=== PATIENT | female | born 1945 | race Caucasian/White ===

== ENCOUNTER 2017-03-15 11:57 | Inpatient (IN) | payer OTHER ==
[~2017-03-15] VITALS: Ht 162.6 cm; Wt 70.1 kg
[2017-03-15] MEDS ORDERED: SODIUM CHLORIDE 0.9% 1000ML 1,000 ML IV STA ×3 (12:14→13:20)
[2017-03-15] MEDS ORDERED: ONDANSETRON 8 MG/54 ML D5W IV STA (12:18)
[2017-03-15 13:01] LABS: BASO % 0.1 %; BASO ABS # 0.01 K/uL (0-0.2); COMPLETE YES; EOS % 0.3 %; HEMATOCRIT 36.6 % (37-47); IG% 0.1 %; LYMPH % 2.5 %; LYMPH ABS # 0.18 K/uL (1.2-3.4); MEAN CELL VOLUME 78.7 fL (80-100); MEAN CORPUSCULAR HEMOGLOBIN 24.9 pg (25-34); MEAN CORPUSCULAR HGB CONC 31.7 g/dl (32-36); MEAN PLATELET VOLUME 11.4 fL (7.4-10.4); MONO % 1.5 %; NEUT % 95.5 %; PLATELET COUNT 169 K/uL (130-400); RED BLOOD COUNT 4.65 M/uL (4.2-5.4); WHITE BLOOD COUNT 7.22 K/uL (4.8-10.8)
--- NOTE | 2017-03-15 13:11 | DIAGNOSTIC IMAGING REPORT ---
CHEST ONE VIEW PORTABLE CLINICAL HISTORY: Weakness. Vomiting. COMPARISON STUDY: No previous studies for comparison. FINDINGS: Lung volumes are normal. There is no pneumothorax or pleural effusion. There is no consolidation to suggest pneumonia. Pulmonary vascularity is normal. Cardiomediastinal silhouette is unremarkable. IMPRESSION: No acute cardiopulmonary findings. Electronically signed by: Alejandro Khanna M.D. 03/15/2017 1:10 PM Dictated Date/Time: 03/15/2017 1:09 PM
[2017-03-15 13:12] LABS: PARTIAL THROMBOPLASTIN RATIO 0.8; PROTHROMBIN TIME (PATIENT) 10.5 SECONDS (9.0-12.0)
[2017-03-15] MEDS ORDERED: DAPTOmycin IV 500 MG in SODIUM CHLORIDE 0.9% 50ML 50 ML IV STA (13:18)
[2017-03-15] MEDS ORDERED: ACETAMINOPHEN 500 MG TAB PO STA (13:18)
[2017-03-15] MEDS ORDERED: PIPERACILLIN/TAZOBACTAM 4.5 GM/100ML D5W IV STA (13:18)
[2017-03-15 13:19] LABS: BLOOD UREA NITROGEN 16 mg/dl (7-18); CREATININE 0.87 mg/dl (0.60-1.20); GLUCOSE 117 mg/dl (70-99)
[2017-03-15 13:20] LABS: ALT/SGPT 20 U/L (12-78); AST/SGOT 19 U/L (15-37); CALCIUM 9.4 mg/dl (8.5-10.1); CARBON DIOXIDE 28 mmol/L (21-32); CHLORIDE 105 mmol/L (98-107); MAGNESIUM 1.4 mg/dl (1.8-2.4); POTASSIUM 3.8 mmol/L (3.5-5.1); SODIUM 140 mmol/L (136-145)
[2017-03-15 13:28] LABS: ALKALINE PHOSPHATASE 89 U/L (45-117)
[2017-03-15 13:50] LABS: URINE APPEARANCE CLEAR (CLEAR); URINE BILIRUBIN NEG (NEG); URINE COLOR YELLOW; URINE EPITHELIAL CELL AUTO 20-30 /lpf (0-5); URINE NITRITE NEG (NEG); URINE PH 5.5 (4.5-7.5); URINE SPECIFIC GRAVITY 1.013 (1.000-1.030); UROBILINOGEN NEG (NEG)
[2017-03-15 13:58] LABS: MANUAL MICROSCOPIC REQUIRED? NO; REVIEW REQ? NO
[2017-03-15] MEDS ORDERED: LEVO75TA PO (14:05)
[2017-03-15] MEDS ORDERED: TOLT4CAP PO (14:05)
[2017-03-15] MEDS ORDERED: METF-841 PO (14:05)
[2017-03-15] MEDS ORDERED: CEFTRIAXONE SOD INJ 2,000 MG in DEXTROSE 5% 50ML 50 ML IV STA (14:21)
[2017-03-15] MEDS ORDERED: OPTIRAY 320 IV PRN (15:00)
--- NOTE | 2017-03-15 16:58 | DIAGNOSTIC IMAGING REPORT ---
CT ANGIOGRAPHY OF THE CHEST, PULMONARY EMBOLUS PROTOCOL CLINICAL HISTORY: Shortness of breath and tachycardia. COMPARISON STUDY: Chest radiograph performed earlier today. TECHNIQUE: Following IV administration of 92 mL of Optiray-320, helical axial images of the chest were obtained utilizing the pulmonary embolus protocol. Maximal intensity projections and sagittal and coronal reformats were viewed on an independent 3D workstation. IV contrast was administered without complication. A dose lowering technique was utilized adhering to the principles of ALARA. CT DOSE: 203.29 mGy.cm FINDINGS: No central or lobar pulmonary emboli are identified. The segmental and subsegmental pulmonary arteries are suboptimally assessed due to respiratory motion. The heart is mildly enlarged. There is moderate coronary artery calcification. There is no evidence of thoracic aortic dissection. The thyroid gland is mildly enlarged and heterogeneous. No enlarged thoracic lymph nodes are present. The lungs are suboptimally assessed due to respiratory motion. A few tiny pulmonary nodules are likely benign. No consolidation is identified to suggest pneumonia. There is no pneumothorax or pleural effusion. A splenule is noted. IMPRESSION: 1. No pulmonary emboli identified although segmental and subsegmental pulmonary arteries suboptimally assessed due to respiratory motion. 2. No acute intrathoracic findings. 3. Mild cardiomegaly. Electronically signed by: Alejandro Khanna M.D. 03/15/2017 4:56 PM Dictated Date/Time: 03/15/2017 4:49 PM
[2017-03-15] MEDS ORDERED: ACETAMINOPHEN 325 MG TAB PO PRN (17:45)
[2017-03-15] MEDS ORDERED: ALUMINUM/MAGNESIUM/SIMETH (MAALOX MAX) 30 ML UDC PO PRN (17:45)
[2017-03-15] MEDS ORDERED: POLYETHYLENE (MIRALAX) 17 GM PACK PO PRN (17:45)
[2017-03-15] MEDS ORDERED: GLUCAGON FOR INJ 1 MG VIAL SQ PRN (17:45)
[2017-03-15] MEDS ORDERED: GLUCOSE 40% GEL 15 GM TUBE PO PRN (17:45)
[2017-03-15] MEDS ORDERED: DC ALL PREVIOUSLY ORDERED DIABETES MEDS ONE (17:45)
[2017-03-15] MEDS ORDERED: DEXTROSE 50% 50 ML SYR IV PRN (17:45)
[2017-03-15] MEDS ORDERED: MAGNESIUM HYDROXIDE SUSP 30 ML UDC PO PRN (17:45)
[2017-03-15] MEDS ORDERED: GLUCOSE 10 TABS/TUBE PO PRN (17:45)
--- NOTE | 2017-03-15 18:22 | DIAGNOSTIC IMAGING REPORT ---
BILATERAL LOWER EXTREMITY VENOUS DOPPLER CLINICAL HISTORY: R/O DVT, recent travel with high d dimer COMPARISON STUDY: No previous studies for comparison. TECHNIQUE: Sonography of the deep venous system of the bilateral lower extremities was performed. Compression and augmentation were evaluated. FINDINGS: The bilateral common femoral, superficial femoral and popliteal veins were compressible. Augmentation was normal. Flow was shown within the deep calf vessels. IMPRESSION: No evidence of deep venous thrombus within the bilateral lower extremities. Electronically signed by: Alejandro Khanna M.D. 03/15/2017 6:21 PM Dictated Date/Time: 03/15/2017 6:20 PM
--- NOTE | 2017-03-15 18:23 | DIAGNOSTIC IMAGING REPORT ---
RENAL ULTRASOUND CLINICAL HISTORY: UTI with sepsis, R/O hydronephrosis/stone or perinephric abscess COMPARISON STUDY: None. TECHNIQUE: Sonography of the kidneys and the urinary bladder was performed. FINDINGS: The right kidney measures 10.7 x 4.5 x 4.6 cm and the left measures 9.5 x 4 x 4.4 cm. There is no hydronephrosis. Exam is mildly compromised by suboptimal penetration. No calculi or masses are identified. The left ureteral jet was not visualized. There is minimal renal cortical thinning. IMPRESSION: 1. No hydronephrosis. 2. Mild renal cortical thinning. Electronically signed by: Alejandro Khanna M.D. 03/15/2017 6:22 PM Dictated Date/Time: 03/15/2017 6:21 PM
--- NOTE | 2017-03-15 18:40 | EMERGENCY ROOM VISIT NOTE ---
History Report prepared by Ross: Yobany Hart Under the Supervision of: Dr. George Gu M.D. First contact with patient: 12:14 Chief Complaint: ILLNESS Stated Complaint: VOMITING,CHILLS,PURPLE LIPS AND FINGERS History of Present Illness The patient is a 71 year old female who presents to the Emergency Room with complaints of intermittent vomiting since last night. The patient states that she started to experience urinary symptoms, including polyuria and a burning sensation, four days ago, which prompted her to visit the doctor. She states that she was visiting [facility] in [place] last night, when they diagnosed her with a UTI and gave her Ceftin. Per nursing, the culture results showed E. coli resistant to Bactrim and Ampicillin. The patient states that she has been taking her antibiotics, but started to experience nausea, vomiting, abdominal tenderness, and chills following her visit. The patient states that she currently is experiencing dryness in her mouth. The patient is accompanied by her daughter who states that three weeks ago she was on a prescribed antibiotic fluids dehydrated. She states that the patient felt light headed after using it and ended up experiencing a syncopal episode. The patient states that her family doctor is Dr. Cardona at [place] in [place], and reports that she is here visiting until March 20 for a family reunion. She reports a history of a , broken leg, and hysterectomy. The patient denies LOC, headache, fevers, chills, diaphoresis, visual changes, neck pain, chest pain, breathing difficulties, CVA pain, back pain, melena, hematochezia, urinary symptoms, numbness, weakness, lymphadenopathy, rash, a history of diabetes, hyperlipidemia, and hypertension, or other complaints. Source of History: patient Onset: last night Position: other (global) Quality: other (vomiting) Timing: intermittent Associated Symptoms: + chills, + nausea, + abdominal pain, + urinary symptoms Review of Systems See HPI for pertinent positives and negatives. A total of ten systems were reviewed and were otherwise negative. Past Medical & Surgical Medical Problems: (1) Broken leg (2) UTI (urinary tract infection) Surgical Problems: (1) H/O shoulder surgery (2) History of (3) S/P hysterectomy Social History Smoking Status: Never Smoker Smokeless Tobacco Use: No Alcohol Use: none Drug Use: none Occupation Status: retired Current/Historical Medications Scheduled Levothyroxine Sodium (Synthroid), 75 MCG PO DAILY Metformin HCl (Metformin HCl ER), 1,000 MG PO BID Tolterodine Tartrate (Detrol La), 4 MG PO DAILY Allergies Coded Allergies: Erythromycin (Unverified Allergy, Unknown, ., 03/15/17) Physical Exam Vital Signs Date Time Temp Pulse Resp B/P (MAP) Pulse Ox O2 Delivery O2 Flow Rate FiO2 03/15/17 17:36 104 03/15/17 16:05 106 18 131/67 97 Room Air 03/15/17 14:19 37.5 117 18 158/107 100 Room Air 03/15/17 13:33 104 03/15/17 13:22 105 16 169/94 96 Room Air 03/15/17 12:36 98 Room Air 03/15/17 12:03 37.9 120 20 134/86 97 Room Air Physical Exam GENERAL: Awake, alert, well-appearing, in no distress HENT: Dry mucous membranes, normocephalic, atraumatic. Oropharynx unremarkable. EYES: Normal conjunctiva. Sclera non-icteric. NECK: Supple. No nuchal rigidity. FROM. No JVD. RESPIRATORY: Clear to auscultation. CARDIAC: tachycardic, normal rhythm. Extremities warm and well perfused. Pulses equal. ABDOMEN: Soft, non-distended. No tenderness to palpation. No rebound or guarding. No masses. RECTAL: Deferred. MUSCULOSKELETAL: Chest examination reveals no tenderness. The back is symmetrical on inspection without obvious abnormality. There is no CVA tenderness to palpation. No joint edema. LOWER EXTREMITIES: Left leg larger than right (which patient states is chronic) and non-tender. Tracing edema. No discoloration. NEURO: Normal sensorium. No sensory or motor deficits noted. SKIN: No rash or jaundice noted. Medical Decision & Procedures ER Provider Diagnostic Interpretation: X-ray: Per my interpretation, radiologist review. CHEST ONE VIEW PORTABLE CLINICAL HISTORY: Weakness. Vomiting. COMPARISON STUDY: No previous studies for comparison. FINDINGS: Lung volumes are normal. There is no pneumothorax or pleural effusion. There is no consolidation to suggest pneumonia. Pulmonary vascularity is normal. Cardiomediastinal silhouette is unremarkable. IMPRESSION: No acute cardiopulmonary findings. Electronically signed by: Alejandro Khanna M.D. 03/15/2017 1:10 PM Dictated Date/Time: 03/15/2017 1:09 PM Laboratory Results 03/15/17 12:35 Red Blood Count 4.65, Mean Corpuscular Volume 78.7, Mean Corpuscular Hemoglobin 24.9, Mean Corpuscular Hemoglobin Concent 31.7, Mean Platelet Volume 11.4, Neutrophils (%) (Auto) 95.5, Lymphocytes (%) (Auto) 2.5, Monocytes (%) (Auto) 1.5, Eosinophils (%) (Auto) 0.3, Basophils (%) (Auto) 0.1, Neutrophils # (Auto) 6.89, Lymphocytes # (Auto) 0.18, Monocytes # (Auto) 0.11, Eosinophils # (Auto) 0.02, Basophils # (Auto) 0.01 03/15/17 12:35 Test 03/15/17 12:35 03/15/17 13:15 03/15/17 14:56 White Blood Count 7.22 K/uL (4.8-10.8) Red Blood Count 4.65 M/uL (4.2-5.4) Hemoglobin 11.6 g/dL (12.0-16.0) Hematocrit 36.6 % (37-47) Mean Corpuscular Volume 78.7 fL (80-100) Mean Corpuscular Hemoglobin 24.9 pg (25-34) Mean Corpuscular Hemoglobin Concent 31.7 g/dl (32-36) Platelet Count 169 K/uL (130-400) Mean Platelet Volume 11.4 fL (7.4-10.4) Neutrophils (%) (Auto) 95.5 % Lymphocytes (%) (Auto) 2.5 % Monocytes (%) (Auto) 1.5 % Eosinophils (%) (Auto) 0.3 % Basophils (%) (Auto) 0.1 % Neutrophils # (Auto) 6.89 K/uL (1.4-6.5) Lymphocytes # (Auto) 0.18 K/uL (1.2-3.4) Monocytes # (Auto) 0.11 K/uL (0.11-0.59) Eosinophils # (Auto) 0.02 K/uL (0-0.5) Basophils # (Auto) 0.01 K/uL (0-0.2) RDW Standard Deviation 40.2 fL (36.4-46.3) RDW Coefficient of Variation 14.2 % (11.5-14.5) Immature Granulocyte % (Auto) 0.1 % Immature Granulocyte # (Auto) 0.01 K/uL (0.00-0.02) Prothrombin Time 10.5 SECONDS (9.0-12.0) Prothromb Time International Ratio 1.0 (0.9-1.1) Activated Partial Thromboplast Time 22.0 SECONDS (21.0-31.0) Partial Thromboplastin Ratio 0.8 D-Dimer 1780 ug/L FEU (0-500) Anion Gap 7.0 mmol/L (3-11) Est Creatinine Clear Calc Drug Dose 57.0 ml/min Estimated GFR () 78.2 Estimated GFR (Non- 67.5 BUN/Creatinine Ratio 18.0 (10-20) Calcium Level 9.4 mg/dl (8.5-10.1) Magnesium Level 1.4 mg/dl (1.8-2.4) Total Bilirubin 0.5 mg/dl (0.2-1) Direct Bilirubin 0.1 mg/dl (0-0.2) Aspartate Amino Transf (AST/SGOT) 19 U/L (15-37) Alanine Aminotransferase (ALT/SGPT) 20 U/L (12-78) Alkaline Phosphatase 89 U/L (45-117) Total Creatine Kinase 56 U/L (26-192) Creatine Kinase MB 1.7 ng/ml (0.5-3.6) Creatine Kinase MB Ratio 3.0 (0-3.0) Troponin I < 0.015 ng/ml (0-0.045) Total Protein 7.0 gm/dl (6.4-8.2) Albumin 3.7 gm/dl (3.4-5.0) Lipase 131 U/L (73-393) Thyroid Stimulating Hormone (TSH) 1.280 uIu/ml (0.300-4.500) Urine Color YELLOW Urine Appearance CLEAR (CLEAR) Urine pH 5.5 (4.5-7.5) Urine Specific Eden 1.013 (1.000-1.030) Urine Protein NEG (NEG) Urine Glucose (UA) NEG (NEG) Urine Ketones NEG (NEG) Urine Occult Blood NEG (NEG) Urine Nitrite NEG (NEG) Urine Bilirubin NEG (NEG) Urine Urobilinogen NEG (NEG) Urine Leukocyte Esterase SMALL (NEG) Urine WBC (Auto) 10-30 /hpf (0-5) Urine RBC (Auto) 0-4 /hpf (0-4) Urine Hyaline Casts (Auto) 1-5 /lpf (0-5) Urine Epithelial Cells (Auto) 20-30 /lpf (0-5) Urine Bacteria (Auto) NEG (NEG) Lactic Acid Level 1.6 mmol/L (0.4-2.0) Laboratory results reviewed by me Medications Administered Medications (Trade) Dose Ordered Sig/Norman Route Start Time Stop Time Status Last Admin Dose Admin Sodium Chloride 1,000 ml @ 999 mls/hr Q1H1M STAT IV 03/15/17 12:14 03/15/17 13:14 DC 03/15/17 12:47 999 MLS/HR Sodium Chloride 1,000 ml @ 125 mls/hr Q8H STAT IV 03/15/17 12:14 03/15/17 20:13 03/15/17 12:48 125 MLS/HR Ondansetron HCl (Zofran 8mg Iv) 8 mg NOW STAT IV 03/15/17 12:18 03/15/17 12:20 MO 03/15/17 12:47 8 MG Acetaminophen (Tylenol Tab) 1,000 mg NOW STAT PO 03/15/17 13:18 03/15/17 13:20 DC 03/15/17 13:35 1,000 MG Piperacillin Sod/ Tazobactam Sod (Zosyn Iv) 4.5 gm NOW STAT IV 03/15/17 13:18 03/15/17 13:20 MO 03/15/17 13:31 4.5 GM Daptomycin 500 mg/ Sodium Chloride 60 ml @ 100 mls/hr NOW STAT IV 03/15/17 13:18 03/15/17 13:53 DC 03/15/17 14:16 100 MLS/HR Sodium Chloride 1,000 ml @ 999 mls/hr Q1H1M STAT IV 03/15/17 13:20 03/15/17 14:20 DC 03/15/17 13:34 999 MLS/HR Ceftriaxone Sodium 2000 mg/ Dextrose 70 ml @ 100 mls/hr ONE STAT IV 03/15/17 14:21 03/15/17 15:02 DC 03/15/17 14:55 100 MLS/HR ECG Indication: vomiting Rate (beats per minute): 111 Rhythm: sinus tachycardia Findings: no acute ischemic change, no ectopy ED Course 1214: Sodium Chloride 1000 ml @ 125 mls/hr IV, Sodium Chloride 1000 ml @ 999 mls /hr IV. 1217: The patient was evaluated in room B12B. A complete history and physical exam was performed. 1218: Ondansetron HCl 8 mg IV. 1317: I reevaluated the patient and she is resting comfortably. She is currently experiencing chills. 1318: Daptomycin 500 mg/Sodium Chloride 60 ml @ 100 mls/hr IV, Zosyn IV 4.5 gm IV, Tylenol Tab 1000 mg PO. 1320: Sodium Chloride 1000 ml @ 999 mls/hr IV. 1349: Upon reexamination, the patient was resting comfortably. I discussed the test results and treatment plan with the patient and she agrees to admission. The patient will be evaluated for further management. 1352: I discussed the patient's case with Dr. Martin, [facility] Hospitalist. He understands the patient's condition and agrees to accept the patient. The patient will be further evaluated. Medical Decision Triage Nursing notes reviewed. The patient's presentation and history were concerning for nausea, vomiting, recent UTI and chills. Etiologies such as viral syndrome, bacteremia, pyelonephritis, urinary tract infection, sepsis, bacteremia, meningitis, as well as others were entertained. The patient was evaluated. She was tachycardic. She was mildly febrile. She was hydrated. She was given Tylenol. Her CBC was unremarkable. Urinalysis was mildly abnormal. Chemistry panel was unremarkable. Chest x-ray was negative. The patient was given IV Zosyn and daptomycin because of her signs and findings concerning for early sepsis. Her outpatient culture revealed Escherichia coli however the official documentation was not immediately available. The nurse did receive this information over the phone from the clinic. It was sensitive to everything however there was resistance noted to Bactrim and ampicillin. Because of the issues I discussed further evaluation and management in the hospital. The patient was in agreement. I discussed the case with the [facility] hospitalist. The patient was evaluated in the Emergency Room for further management. Medication Reconcilliation Current Medication List: was personally reviewed by me Blood Pressure Screening Patient's blood pressure: Elevated blood pressure Blood pressure disposition: Elevated BP felt to be situational Consults Time Called: [id number] Consulting Physician: Dr. Martin, [facility] Hospitalist Returned Call: [phone] I discussed the patient's case with Dr. Martin, [facility] Hospitalist. He understands the patient's condition and agrees to accept the patient. The patient will be further evaluated. Impression Primary Impression: Sepsis due to Escherichia coli Scribe Attestation The scribe's documentation has been prepared under my direction and personally reviewed by me in its entirety. I confirm that the note above accurately reflects all work, treatment, procedures, and medical decision making performed by me. Departure Information Dispostion Being Evaluated By Hospitalist (Dr. Martin) Referrals No Doctor, Assigned (PCP) Patient Instructions My [facility]
[2017-03-15 19:25] VITALS: BP 139/75; PULSE 93; TEMP 37.4; O2SAT 93; Ht 162.6 cm; Wt 70.1 kg
[2017-03-15] MEDS ORDERED: MAGNESIUM OXIDE 400 MG TAB PO STA (19:54)
[2017-03-15] MEDS: SODIUM CHLORIDE 0.9% 1000ML 1,000 ML IV SCH (19:58)
[2017-03-15 20:00] VITALS: O2SAT 93
[2017-03-15] MEDS: INSULIN ASPART 100 UNITS/ML 3 ML PEN SC SCH (20:36)
[2017-03-15] MEDS ORDERED: ENOXAPARIN 40 MG/0.4 ML SYR SC SCH (21:00)
[2017-03-15] MEDS: LACTOBACILLUS ACIDOPHILUS 1 GM PACK PO SCH (21:04)
[2017-03-15 23:49] VITALS: BP 108/66; PULSE 99; TEMP 36.9; O2SAT 96
[2017-03-16] VITALS (9 sets, daily range): BP systolic 80–135; BP diastolic 57–76; PULSE 67–124; TEMP 36.5–37.2; O2SAT 94–98
--- NOTE | 2017-03-16 00:44 | HISTORY & PHYSICAL EXAMINATION ---
DATE OF ADMISSION: 03/15/2017 CHIEF COMPLAINT: Burning sensation in the urine. HISTORY OF PRESENT ILLNESS: The patient is a 71-year-old female, who is coming to the area for a family reunion. The patient states that she has been experiencing increased frequency of urination with burning sensation. The patient also has been having some chills and fevers; so she went to an urgent care facility and she was given Ceftin yesterday. Yet the patient started getting sicker quickly and she decided to come to the ED for further evaluation. On arrival to the ED, she was found to have significant tachycardia with a heart rate in the 120s and her temperature was 37.9. The patient's urine also indicated urinary tract infection with a white blood cell count of 10-30. The ER physician spoke with the urgent care facility and they told him that her urine grew E. coli that is resistant to ampicillin and Bactrim, but sensitive to everything else. Unfortunately, their medical record was closed and they were not able to send him any results of that. REVIEW OF SYSTEMS: Denies any headache, double vision or blurry vision. Denies any chest pain or palpitations. Denies any cough, wheezing or shortness of breath. Denies any diarrhea or blood in the stool. Denies any burning sensation in the urine or blood. Rest of the review of systems is negative except for what was mentioned in the HPI; some burning sensation in the urine, dysuria and increased frequency. Also, the patient stated that she has some nausea. PAST MEDICAL HISTORY: History of shoulder surgery, history of hysterectomy, history of hypothyroidism and history of diabetes. SOCIAL HISTORY: She does not smoke or drink alcohol. Retired. Came to the area for a family reunion. ALLERGIES: TO ERYTHROMYCIN. CURRENT HOME MEDICATIONS: Synthroid 75 mcg p.o. daily, metformin 1000 mg p.o. b.i.d. and Detrol-LA 4 mg p.o. daily. PHYSICAL EXAMINATION: VITAL SIGNS: Temperature 37.9, heart rate was 120 after multiple boluses and went down to 104, respirations 18, blood pressure 131/67, saturation 97% room air. HEENT: No jaundice, no pallor with mucous membranes. NECK: Supple. HEART: S1, S2, tachycardic. No gallop, rub or murmur. LUNGS: Clear to auscultation bilaterally. Normal chest wall expansion. ABDOMEN: Soft, nontender and nondistended. NEUROLOGIC: Awake, alert, oriented to time, place and person. Moves all extremities. Sensation is intact. Cranial nerves II-XII appear to be intact. SKIN: Shows no rash on exposed skin area. MUSCULOSKELETAL: No muscle atrophy or large inflamed joints. IMAGING: Chest x-ray showed no acute cardiopulmonary findings. LABORATORY DATA: White blood cell count 7.2, hemoglobin 11.6, platelets 169, BUN 16, creatinine 0.8. D-dimer came back extremely elevated at 1700. ASSESSMENT: 1. Sepsis, present on admission secondary to below. 2. Urinary tract infection, present on admission. 3. Elevated D-dimer with a recent history of travel. 4. Diabetes mellitus. 5. Hypertension 6. Hypothyroidism. 7. Persistent tachycardia. PLAN: 1. Admit patient to telemetry. Obtain CT angiogram and lower extremity ultrasound; both were ordered stat and came back negative for PE and DVT. 2. Initiate ceftriaxone IV treatment. 3. IV fluid hydration. 4. Hold metformin. 5. Sliding scale insulin and order hemoglobin A1c to stratify patient's risk and see if her diabetes is under control or not, as uncontrolled diabetes with UTI might indicate complicated UTI course 6. Obtain ultrasound to rule out perinephric abscess or hydronephrosis. 7. Obtain blood cultures and urine cultures. 8. Deep venous thrombosis prophylaxis. Further recommendation will follow. MTDD
[2017-03-16] MEDS: LEVOTHYROXINE 75 MCG TAB PO SCH (05:10)
[2017-03-16] MEDS: INSULIN ASPART 100 UNITS/ML 3 ML PEN SC SCH ×4 (06:30→20:28)
[2017-03-16] MEDS: TOLTERODINE TARTRATE LA 4 MG CAPCR PO SCH (08:07)
[2017-03-16] MEDS: LACTOBACILLUS ACIDOPHILUS 1 GM PACK PO SCH ×3 (08:08→16:24)
[2017-03-16 08:16] LABS: BASO % 0.2 %; BASO ABS # 0.02 K/uL (0-0.2); COMPLETE YES; EOS % 2.3 %; HEMATOCRIT 32.3 % (37-47); IG% 0.1 %; LYMPH % 4.7 %; LYMPH ABS # 0.45 K/uL (1.2-3.4); MEAN CELL VOLUME 79.2 fL (80-100); MEAN CORPUSCULAR HEMOGLOBIN 25.7 pg (25-34); MEAN CORPUSCULAR HGB CONC 32.5 g/dl (32-36); MEAN PLATELET VOLUME 11.2 fL (7.4-10.4); MONO % 8.2 %; NEUT % 84.5 %; PLATELET COUNT 153 K/uL (130-400); RED BLOOD COUNT 4.08 M/uL (4.2-5.4); WHITE BLOOD COUNT 9.59 K/uL (4.8-10.8)
[2017-03-16 08:53] LABS: BUN/CREATININE RATIO 15.9 (10-20); CALCIUM 8.3 mg/dl (8.5-10.1); CREATININE 0.91 mg/dl (0.60-1.20); MAGNESIUM 1.7 mg/dl (1.8-2.4); POTASSIUM 3.8 mmol/L (3.5-5.1)
[2017-03-16 09:19] LABS: ALB/GLOB RATIO 0.9 (0.9-2); PHOSPHORUS 2.8 mg/dl (2.5-4.9)
[2017-03-16] MEDS: MAGNESIUM SULFATE 1GM / D5W 1 GM in PREMIXED IN D5W 100 ML IV SCH ×2 (10:33→11:45)
[2017-03-16] MEDS: SODIUM CHLORIDE 0.9% 1000ML 1,000 ML IV SCH ×2 (10:33→20:39)
[2017-03-16] MEDS ORDERED: METOPROLOL TARTRATE 1 MG/ML VIAL IV STA (12:32)
[2017-03-16] MEDS ORDERED: METOPROLOL TARTRATE 25 MG TAB PO STA (12:32)
[2017-03-16] MEDS: ENOXAPARIN 60 MG/0.6 ML SYR SQ SCH ×2 (13:34→20:35)
[2017-03-16] MEDS ORDERED: CEFTRIAXONE SOD INJ 1 GM in DEXTROSE 5% ADD-VANTAGE 50ML 50 ML IV SCH (14:00)
--- NOTE | 2017-03-16 15:57 | ECHOCARDIOGRAM REPORT ---
*NOTICE TO RECEIVING CONSTITUTION PARTY AGENCY This information is strictly Confidential and protected under [place] law. [place] law prohibits you from making any further disclosure of this information unless further disclosure is expressly permitted by the written consent of the person to whom it pertains or is authorized by law. A general authorization for the release of medical or other information is not sufficient for this purpose. Hospital accepts no responsibility if the information is made available to any other person, INCLUDING THE PATIENT. Interpretation Summary * Name: GIL MARTINEZ Study Date: 03/16/2017 02:01 PM BP: 101/67 mmHg * Patient Location: [facility]\S\N278\S\1 HR: 85 * : 1945 (M/d/yyyy) Gender: Female Height: 64 in * Age: 71 yrs Ethnicity: [place] Weight: 141 lb * Ordering Physician: Ernesto Reynolds * Referring Physician: Self, Referred * Performed By: Elia Roman RDCS * * Reason For Study: A-fib * BSA: 1.7 m2 * -- Conclusions -- * There is borderline concentric left ventricular hypertrophy. * Left ventricular systolic function is normal. * There is moderate to severe tricuspid regurgitation. * Right ventricular systolic pressure is normal. Procedure Details * A complete two-dimensional transthoracic echocardiogram was performed (2D, M-mode, Doppler and color flow Doppler). * The study was technically adequate. Left Ventricle * The left ventricle is normal in size. * There is borderline concentric left ventricular hypertrophy. * Left ventricular systolic function is normal. Right Ventricle * The right ventricle is normal in size and function. Atria * The left atrial size is normal. * Right atrial size is normal. Mitral Valve * The mitral valve anatomy is normal. * There is trace mitral regurgitation. Tricuspid Valve * The tricuspid valve anatomy is normal. * There is moderate to severe tricuspid regurgitation. * Right ventricular systolic pressure is normal. Aortic Valve * The aortic valve is normal in structure and function. * The aortic valve is trileaflet. * No hemodynamically significant valvular aortic stenosis. * No aortic regurgitation is present. Great Vessels * The aortic root is normal size. Pericardium/Pleural * There is no pericardial effusion. MMode 2D Measurements and Calculations IVSd 1.2 cm IVSs 1.5 cm LVIDd 3.8 cm LVIDs 2.5 cm LVPWd 1.2 cm LVPWs 1.8 cm IVS/LVPW 0.99 FS 32.7 % EDV(Teich) 61.0 ml ESV(Teich) 23.2 ml EF(Teich) 61.9 % EDV(cubed) 53.9 ml ESV(cubed) 16.4 ml EF(cubed) 69.5 % % IVS thick 26.5 % % LVPW thick 47.2 % LV mass(C)d 157.2 grams LV mass(C)dI 93.2 grams/m\S\2 LV mass(C)s 158.1 grams LV mass(C)sI 93.8 grams/m\S\2 SV(Teich) 37.8 ml SI(Teich) 22.4 ml/m\S\2 SV(cubed) 37.5 ml SI(cubed) 22.2 ml/m\S\2 Ao root diam 3.1 cm Ao root area 7.6 cm\S\2 ACS 1.8 cm LA dimension 3.7 cm asc Aorta Diam 3.6 cm LA/Ao 1.2 LVOT diam 2.0 cm LVOT area 3.0 cm\S\2 LVAd ap4 21.5 cm\S\2 LVLd ap4 6.6 cm EDV(MOD-sp4) 58.7 ml LVAs ap4 12.7 cm\S\2 LVLs ap4 5.9 cm ESV(MOD-sp4) 25.4 ml EF(MOD-sp4) 56.7 % LVAd ap2 18.0 cm\S\2 LVLd ap2 6.4 cm EDV(MOD-sp2) 42.7 ml LVAs ap2 10.4 cm\S\2 LVLs ap2 5.6 cm ESV(MOD-sp2) 17.0 ml EF(MOD-sp2) 60.2 % SV(MOD-sp4) 33.3 ml SI(MOD-sp4) 19.8 ml/m\S\2 SV(MOD-sp2) 25.7 ml SI(MOD-sp2) 15.2 ml/m\S\2 Doppler Measurements and Calculations MV E max mable 114.2 cm/sec MV dec time 0.19 sec Ao V2 max 130.9 cm/sec Ao max PG 6.9 mmHg Ao max PG (full) 3.2 mmHg DENISE(V,A) 2.2 cm\S\2 DENISE(V,D) 2.2 cm\S\2 LV V1 max PG 3.6 mmHg LV V1 max 95.5 cm/sec PA V2 max 92.3 cm/sec PA max PG 3.4 mmHg PA acc slope 491.3 cm/sec\S\2 PA acc time 0.11 sec TR max mable 209.0 cm/sec PA pr(Accel) 31.5 mmHg
--- NOTE | 2017-03-16 16:02 | Progress Note ---
Subjective Date of Service: Mar 16, 2017. Subjective Pt evaluation today including: conversation w/ patient, conversation w/ family (daughter), physical exam, lab review, review of studies, review of inpatient medication list Pain: denies pain PO Intake: adequate Voiding: no voiding problems patient feeling well, resting in bed, no fever/chills, no dysuria, no flank pain , no vomiting per patient, she did not have vomiting until she took the Macrobid that was prescribed by Urgent care this is her third UTI in the past several weeks and she was admitted in [place] for UTI and sepsis, culture grew E coli talked with patient's daughter Sumaya (ER nurse in [place]) over the phone she was not sure of antibiotics that were used, thinks it was Ceftin or Keflex she reports that she really has difficult time tolerating oral antibiotics and not sure if she actually completes course of treatment she did not think she had tried quinolones before she was seen at [facility] urgent care in [place] the day prior to admission for the UTI discussed case with nurse there, no culture results back yet but she will fax to the nurses station when she gets them also, patient went into atrial fibrillation this AM on the monitor and confirmed on EKG no history of afib, she has no symptoms she had syncope a few weeks ago and work up at that time was inconclusive, was scheduled to see a language teacher this Friday at home in [place] afib likely the cause of syncope, especially since she is asymptomatic discussed starting Lopressor and Lovenox, plan for echo and cardiology consult updated daughter on this plan as well Problem List Medical Problems: (1) Sepsis due to Escherichia coli Status: Acute Review of Systems Constitutional: + weakness, + fatigue All Other Systems: Reviewed and Negative Medications Current Inpatient Medications Medications (Trade) Dose Ordered Sig/Norman Route Start Time Stop Time Status Last Admin Dose Admin Ioversol (Optiray 320) 125 ml UD PRN IV 03/15/17 15:00 03/19/17 14:59 Levothyroxine Sodium (Synthroid Tab) 75 mcg DAILYBB PO 03/16/17 06:30 04/15/17 06:59 03/16/17 05:10 75 MCG Tolterodine Tartrate (Detrol LA Cap) 4 mg DAILY PO 03/16/17 09:00 04/15/17 08:59 03/16/17 08:07 4 MG Sodium Chloride 1,000 ml @ 100 mls/hr Q10H IV 03/15/17 17:44 04/14/17 17:43 03/16/17 10:33 100 MLS/HR Acetaminophen (Tylenol Tab) 650 mg Q4H PRN PO 03/15/17 17:45 04/14/17 17:44 Al Hydrox/Mg Hydrox/Simethicone (Maalox Max Susp) 15 ml Q4H PRN PO 03/15/17 17:45 04/14/17 17:44 Magnesium Hydroxide (Milk Of Magnesia Susp) 30 ml Q12H PRN PO 03/15/17 17:45 04/14/17 17:44 Polyethylene (Miralax Powder Packet) 17 gm DAILY PRN PO 03/15/17 17:45 04/14/17 17:44 Insulin Aspart (novoLOG ASPART) SLIDING SCALE If C... ACHS SC 03/15/17 21:00 04/14/17 20:59 Glucose (Glucose 40% Gel) 15-30 GRAMS 15 GRAMS... UD PRN PO 03/15/17 17:45 04/14/17 17:44 Glucose (Glucose Chew Tab) 4-8 Tablets 4 Tabl... UD PRN PO 03/15/17 17:45 04/14/17 17:44 Dextrose (Dextrose 50% 50ML Syringe) 25-50ML OF 50% DW IV FOR... UD PRN IV 03/15/17 17:45 04/14/17 17:44 Glucagon (Glucagon Inj) 1 mg UD PRN SQ 03/15/17 17:45 04/14/17 17:44 Ceftriaxone Sodium 1 gm/ Dextrose 50 ml @ 100 mls/hr Q24H IV 03/16/17 14:00 03/26/17 13:59 03/16/17 13:33 100 MLS/HR Lactobacillus Acidophilus (Lactinex Granules Pack) 1 gm TIDM PO 03/15/17 18:00 04/14/17 17:59 03/16/17 12:06 1 GM Metoprolol Tartrate (Lopressor Tab) 25 mg BID PO 03/16/17 21:00 04/15/17 20:59 Enoxaparin Sodium (Lovenox Inj) 60 mg Q12@1000,2200 SQ 03/16/17 13:00 8/29/17 12:59 03/16/17 13:34 60 MG Objective Vital Signs Date Time Temp Pulse Resp B/P (MAP) Pulse Ox O2 Delivery O2 Flow Rate FiO2 03/16/17 14:53 36.8 90 16 87/59 (68) 98 80/57 (65) 03/16/17 12:57 124 101/67 03/16/17 12:00 Room Air 03/16/17 11:22 36.9 102 16 104/57 (73) 96 03/16/17 07:48 36.7 124 16 110/73 (85) 94 03/16/17 07:45 Room Air 03/16/17 04:15 37.2 101 18 135/76 (95) 97 Room Air 03/16/17 04:00 Room Air 03/16/17 00:00 Room Air 03/15/17 23:49 36.9 99 16 108/66 (80) 96 Room Air 03/15/17 20:00 Room Air 03/15/17 20:00 93 Room Air 03/15/17 19:25 37.4 93 18 139/75 93 Room Air 03/15/17 19:13 96 18 128/77 98 Room Air 03/15/17 19:11 37.1 03/15/17 17:36 104 03/15/17 16:05 106 18 131/67 97 Room Air Physical Exam General Appearance: WD/WN, no apparent distress Eyes: normal inspection, EOMI, sclerae normal ENT: normal ENT inspection, hearing grossly normal, pharynx normal Neck: supple, no adenopathy, no JVD, trachea midline Respiratory/Chest: chest non-tender, lungs clear, normal breath sounds, no respiratory distress, no accessory muscle use Cardiovascular: no edema, no gallop, no JVD, no murmur, + tachycardia, + irregularly irregular Abdomen: normal bowel sounds, non tender, soft, no organomegaly Extremities: normal range of motion, non-tender, normal inspection, no pedal edema, no calf tenderness, pelvis stable Neurologic/Psychiatric: idea worker II-XII nml as tested, no motor/sensory deficits, alert, normal mood/affect, oriented x 3 Skin: normal color, warm/dry, no rash Lymphatic: no adenopathy Laboratory Results Last 24 Hours Test 03/15/17 20:19 03/16/17 07:34 03/16/17 07:49 03/16/17 07:52 Bedside Glucose 108 mg/dl 104 mg/dl White Blood Count 9.59 K/uL Red Blood Count 4.08 M/uL Hemoglobin 10.5 g/dL Hematocrit 32.3 % Mean Corpuscular Volume 79.2 fL Mean Corpuscular Hemoglobin 25.7 pg Mean Corpuscular Hemoglobin Concent 32.5 g/dl Platelet Count 153 K/uL Mean Platelet Volume 11.2 fL Neutrophils (%) (Auto) 84.5 % Lymphocytes (%) (Auto) 4.7 % Monocytes (%) (Auto) 8.2 % Eosinophils (%) (Auto) 2.3 % Basophils (%) (Auto) 0.2 % Neutrophils # (Auto) 8.10 K/uL Lymphocytes # (Auto) 0.45 K/uL Monocytes # (Auto) 0.79 K/uL Eosinophils # (Auto) 0.22 K/uL Basophils # (Auto) 0.02 K/uL RDW Standard Deviation 42.7 fL RDW Coefficient of Variation 14.8 % Immature Granulocyte % (Auto) 0.1 % Immature Granulocyte # (Auto) 0.01 K/uL Sodium Level 140 mmol/L Potassium Level 3.8 mmol/L Chloride Level 106 mmol/L Carbon Dioxide Level 26 mmol/L Anion Gap 8.0 mmol/L Blood Urea Nitrogen 15 mg/dl Creatinine 0.91 mg/dl Est Creatinine Clear Calc Drug Dose 49.7 ml/min Estimated GFR () 74.1 Estimated GFR (Non- 63.9 BUN/Creatinine Ratio 15.9 Random Glucose 93 mg/dl Calcium Level 8.3 mg/dl Phosphorus Level 2.8 mg/dl Magnesium Level 1.7 mg/dl Total Bilirubin 0.6 mg/dl Aspartate Amino Transf (AST/SGOT) 21 U/L Alanine Aminotransferase (ALT/SGPT) 20 U/L Alkaline Phosphatase 69 U/L Total Protein 5.5 gm/dl Albumin 2.6 gm/dl Globulin 2.9 gm/dl Albumin/Globulin Ratio 0.9 Lactic Acid Level 1.2 mmol/L Test 03/16/17 11:40 Bedside Glucose 101 mg/dl Assessment and Plan 71 yo female presenting with UTI, vomiting (started after she started Macrobid) , fever/chills, initially sinus tachycardia. Went into atrial fibrillation in the morning. - Sepsis due to UTI: fevers at home, WBC of 12k, tachycardia prior urine cultures grew E coli in [place], called urgent care, no results yet from most recent culture that they took urine culture here with no growth since she was already on antibiotics continue NSS at 100cc/hr, blood cultures pending continue Rocephin of note, she has issues with oral antibiotics, vomiting with Ceftin and Macrobid would recommend transitioning to oral antibiotics while still in hospital to make sure she tolerates - New atrial fibrillation: no symptoms, may have paroxysmal afib, especially with recent syncopal episode without etiology rates in the 120-130's at rest, Lopressor 5mg IV given and started 25mg PO BID BP dropped slightly, no symptoms, can fluid bolus if needed start Lovenox q12 for full anticoagulation echocardiogram, cardiology consulted - Elevated D dimer: CTA chest negative for PE - DM type II: holding Metformin, utilize Novolog, diabetic diet - Hypothyroidism: continue Synthroid
--- NOTE | 2017-03-16 17:09 | Cardiology Consultation ---
Cardiology Consultation Date of Consultation: Mar 16, 2017. Requesting Physician: Rodolfo Reason for Consultation: Atrial fibrillation Pt evaluation today including: conversation w/ patient, physical exam, chart review, lab review, review of studies, conversation w/ attending History of Present Illness The patient is a 71-year-old woman visiting from [place] who [place] presented to [place] and for symptoms of a developing urinary tract infection. This was manifest primarily by a sense of mild fatigue , dysuria and foul-smelling urine. The patient was prescribed some antibiotics but became more acutely ill. She developed a sense of chills, worsening fatigue nausea and vomiting. Based on the progressive nature of her symptoms she presented [facility] for additional evaluation. She was discovered to have evidence of urinary tract infection and dehydration. She was also noted to be in atrial fibrillation. Patient reports that approximately 1 month ago she was also treated for urinary tract infection in [place]. At that time she was taking antibiotics and also developed progressive symptoms anorexia fatigue and dehydration. She was admitted to a facility at that location and underwent significant hydration. She reports having gained 14 pounds during the course of that admission. She did not report significant nausea or vomiting or diarrhea. She is not aware of any rapid heartbeat at that time. The admission was preceded by an episode of syncope. She recalls being quite dizzy and lightheaded at home. She attempted to ambulate to the bathroom and was later found on the floor. By her report he did not have any rhythm problems during that admission. She did not recall being told she had atrial fibrillation. Based on the nature of her symptoms and the syncopal event she was scheduled for an outpatient cardiac evaluation. In general she is an active individual who is accustomed to walking 2 dogs twice daily. She can perform routine activity without limiting symptoms of dyspnea or chest pain. She denies any symptoms of orthopnea. She is generally not aware of any palpitations or racing heartbeats. Outside of the event noted above she generally does not have dizziness or lightheadedness. She has not report swelling in her lower extremities. At the time of this interview she claims to be feeling better. She is still not aware of any irregularity in her heartbeat. 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 Review of Systems Constitutional: + see HPI Respiratory: + see HPI Cardiac: + see HPI Abdomen: + see HPI Female : + see HPI Neurologic: + see HPI Heme: + see HPI Endo: + see HPI Skin: + see HPI All Other Systems: Reviewed and Negative Allergies Coded Allergies: Erythromycin (Unverified Allergy, Unknown, ., 03/15/17) Medications Current Inpatient Medications Medications (Trade) Dose Ordered Sig/Norman Route Start Time Stop Time Status Last Admin Dose Admin Ioversol (Optiray 320) 125 ml UD PRN IV 03/15/17 15:00 03/19/17 14:59 Levothyroxine Sodium (Synthroid Tab) 75 mcg DAILYBB PO 03/16/17 06:30 04/15/17 06:59 03/16/17 05:10 75 MCG Tolterodine Tartrate (Detrol LA Cap) 4 mg DAILY PO 03/16/17 09:00 04/15/17 08:59 03/16/17 08:07 4 MG Sodium Chloride 1,000 ml @ 100 mls/hr Q10H IV 03/15/17 17:44 04/14/17 17:43 03/16/17 10:33 100 MLS/HR Acetaminophen (Tylenol Tab) 650 mg Q4H PRN PO 03/15/17 17:45 04/14/17 17:44 Al Hydrox/Mg Hydrox/Simethicone (Maalox Max Susp) 15 ml Q4H PRN PO 03/15/17 17:45 04/14/17 17:44 Magnesium Hydroxide (Milk Of Magnesia Susp) 30 ml Q12H PRN PO 03/15/17 17:45 04/14/17 17:44 Polyethylene (Miralax Powder Packet) 17 gm DAILY PRN PO 03/15/17 17:45 04/14/17 17:44 Insulin Aspart (novoLOG ASPART) SLIDING SCALE If C... ACHS SC 03/15/17 21:00 04/14/17 20:59 Glucose (Glucose 40% Gel) 15-30 GRAMS 15 GRAMS... UD PRN PO 03/15/17 17:45 04/14/17 17:44 Glucose (Glucose Chew Tab) 4-8 Tablets 4 Tabl... UD PRN PO 03/15/17 17:45 04/14/17 17:44 Dextrose (Dextrose 50% 50ML Syringe) 25-50ML OF 50% DW IV FOR... UD PRN IV 03/15/17 17:45 04/14/17 17:44 Glucagon (Glucagon Inj) 1 mg UD PRN SQ 03/15/17 17:45 04/14/17 17:44 Ceftriaxone Sodium 1 gm/ Dextrose 50 ml @ 100 mls/hr Q24H IV 03/16/17 14:00 03/26/17 13:59 03/16/17 13:33 100 MLS/HR Lactobacillus Acidophilus (Lactinex Granules Pack) 1 gm TIDM PO 03/15/17 18:00 04/14/17 17:59 03/16/17 16:24 1 GM Metoprolol Tartrate (Lopressor Tab) 25 mg BID PO 03/16/17 21:00 04/15/17 20:59 Enoxaparin Sodium (Lovenox Inj) 60 mg Q12@1000,2200 SQ 03/16/17 13:00 04/15/17 12:59 03/16/17 13:34 60 MG Physical Exam Vital Signs Past 12 Hours Date Time Temp Pulse Resp B/P (MAP) Pulse Ox O2 Delivery O2 Flow Rate FiO2 03/16/17 14:53 36.8 90 16 87/59 (68) 98 80/57 (65) 03/16/17 12:57 124 101/67 03/16/17 12:00 Room Air 03/16/17 11:22 36.9 102 16 104/57 (73) 96 03/16/17 07:48 36.7 124 16 110/73 (85) 94 03/16/17 07:45 Room Air She is alert and oriented x3. Mood affect appear normal. She answered all questions appropriately. HEENT: Sclerae are anicteric. Pupils are equal and reactive to light and accommodation. Extraocular movements were intact. Neuro: Cranial nerves intact Neck: Examination of the submandibular region did not reveal any significant lymphadenopathy. Carotids are palpable bilaterally and free of bruits on auscultation. There was no evidence of jugular venous distention. The thyroid was not enlarged. Lungs: Lungs are clear to auscultation bilaterally with very fine crackles in the bases bilaterally. There are no rales wheezes or rhonchi. She has normal respiratory effort without use of accessory muscles. There is normal pulmonary excursion. Cardiac: The rhythm was irregular. S1 and S2 were normal. There are no murmurs on examination. The PMI was not markedly displaced on palpation. Abdomen: The abdomen was soft and nontender. Extremities: Patient has bilateral radial pulses that are equal in intensity. There is no evidence cyanosis or clubbing. There was no evidence of significant peripheral edema bilaterally. Skin: There are no rashes noted on examination today. Data Laboratory Results: Last 24 Hours Test 03/15/17 20:19 03/16/17 07:34 03/16/17 07:49 03/16/17 07:52 Bedside Glucose 108 mg/dl 104 mg/dl White Blood Count 9.59 K/uL Red Blood Count 4.08 M/uL Hemoglobin 10.5 g/dL Hematocrit 32.3 % Mean Corpuscular Volume 79.2 fL Mean Corpuscular Hemoglobin 25.7 pg Mean Corpuscular Hemoglobin Concent 32.5 g/dl Platelet Count 153 K/uL Mean Platelet Volume 11.2 fL Neutrophils (%) (Auto) 84.5 % Lymphocytes (%) (Auto) 4.7 % Monocytes (%) (Auto) 8.2 % Eosinophils (%) (Auto) 2.3 % Basophils (%) (Auto) 0.2 % Neutrophils # (Auto) 8.10 K/uL Lymphocytes # (Auto) 0.45 K/uL Monocytes # (Auto) 0.79 K/uL Eosinophils # (Auto) 0.22 K/uL Basophils # (Auto) 0.02 K/uL RDW Standard Deviation 42.7 fL RDW Coefficient of Variation 14.8 % Immature Granulocyte % (Auto) 0.1 % Immature Granulocyte # (Auto) 0.01 K/uL Sodium Level 140 mmol/L Potassium Level 3.8 mmol/L Chloride Level 106 mmol/L Carbon Dioxide Level 26 mmol/L Anion Gap 8.0 mmol/L Blood Urea Nitrogen 15 mg/dl Creatinine 0.91 mg/dl Est Creatinine Clear Calc Drug Dose 49.7 ml/min Estimated GFR () 74.1 Estimated GFR (Non- 63.9 BUN/Creatinine Ratio 15.9 Random Glucose 93 mg/dl Calcium Level 8.3 mg/dl Phosphorus Level 2.8 mg/dl Magnesium Level 1.7 mg/dl Total Bilirubin 0.6 mg/dl Aspartate Amino Transf (AST/SGOT) 21 U/L Alanine Aminotransferase (ALT/SGPT) 20 U/L Alkaline Phosphatase 69 U/L Total Protein 5.5 gm/dl Albumin 2.6 gm/dl Globulin 2.9 gm/dl Albumin/Globulin Ratio 0.9 Lactic Acid Level 1.2 mmol/L Test 03/16/17 11:40 03/16/17 16:06 Bedside Glucose 101 mg/dl 89 mg/dl Imaging: I reviewed the results of her venous Doppler, CT PE protocol and chest x-ray. All unremarkable. No evidence of DVT or PE EKG: Atrial fibrillation with rapid ventricular response. No significant ST or T-wave changes Telemetry reviewed: Patient did convert to sinus rhythm for brief period of time and now has returned to atrial fibrillation. Echocardiogram demonstrated preserved LV systolic function overall normal chamber dimensions. She did have moderate to severe tricuspid regurgitation with normal estimated pulmonary pressures. Assessment & Plan 1. Atrial fibrillation: Patient is essentially asymptomatic. Whether a transition in this rhythm is related to her acute illness or possibly some volume changes is unclear. She does not appear to have had a documented episode of this arrhythmia in the past. However, given the lack of symptoms she may in fact have had atrial fibrillation sub clinically. Her echocardiogram did not demonstrate a large left atrium. The overall ventricular function was normal. She does not have a history of hypertension. She does not have obesity. She has no diagnosis of obstructive sleep apnea. It is certainly possible this occurred due to her acute illness and advanced age. This point efforts have been made to control her ventricular rate. She did convert to sinus rhythm for a brief period of time but has now returned atrial fibrillation. She was started on metoprolol which seems reasonable. Initially her blood pressure was somewhat low so we must titrate the medication cautiously. I would allow for higher ventricular rates during her acute illness provided she remains asymptomatic. With respect to anticoagulation, her chads Vasc score is 3 (age, gender, diabetes), which would make her a good candidate for systemic anticoagulation. She has been administered Lovenox. Given her preserved renal function she would be a good candidate for a novel oral anticoagulant such as Xarelto 20 milligrams daily. She is familiar with warfarin use as her mother was on warfarin for a period of time. 2. Tricuspid regurgitation: This was moderate to severe on her echocardiogram. The overall right atrium did not seem notably dilated. There was no dilation or reduced function of the right ventricle. The pulmonary pressures are also normal. The overall valve structure appear grossly normal. This may simply be due to overall poor coaptation of the tricuspid valve. In the absence of reduced function, chamber dilation or significant edema no specific therapy is required currently. 3. Syncope: Her symptoms leading up to the event are certainly consistent with dehydration and orthostatic hypotension. She did not describe any symptoms of a racing heartbeat and did not appear to have atrial fibrillation the time of presentation to the hospital in [place]. It is possible that this arrhythmia played a role in her syncope, but she had atrial fibrillation at presentation here and did convert to sinus rhythm without significant pauses or symptoms. Should she have had syncope from atrial fibrillation is most likely to have occurred during a transition from sinus to atrial fibrillation or atrial fibrillation to sinus. We have seen her cycle both ways here in the hospital without symptoms. We will watch her rhythm while she is in the hospital and her response to beta-blockers. Left ventricular function is normal and she does not have valvular disease which could have caused syncope. There did not appear to be any other forms conduction disease on the monitor when she was in sinus rhythm.
[2017-03-16] MEDS: METOPROLOL TARTRATE 25 MG TAB PO SCH (20:34)
[2017-03-17 04:21] VITALS: BP 127/78; PULSE 69; TEMP 36.6; O2SAT 95
[2017-03-17] MEDS: LEVOTHYROXINE 75 MCG TAB PO SCH (05:47)
[2017-03-17] MEDS ORDERED: NURSING VERBAL MED ORDER ONE (06:00)
[2017-03-17 06:38] LABS: ESTIMATED AVERAGE GLUCOSE 114 mg/dl; HA1C FLAG Normal (Normal)
[2017-03-17 07:45] VITALS: BP 138/84; PULSE 66; TEMP 36.5; O2SAT 95
[2017-03-17] MEDS: INSULIN ASPART 100 UNITS/ML 3 ML PEN SC SCH (08:10)
[2017-03-17] MEDS: LACTOBACILLUS ACIDOPHILUS 1 GM PACK PO SCH (08:12)
[2017-03-17] MEDS: TOLTERODINE TARTRATE LA 4 MG CAPCR PO SCH (08:12)
[2017-03-17] MEDS: METOPROLOL TARTRATE 25 MG TAB PO SCH (08:12)
[2017-03-17] MEDS ORDERED: CEFD300C2 PO (08:15)
[2017-03-17] MEDS ORDERED: RIVA1TAB4 PO (08:15)
[2017-03-17] MEDS ORDERED: LCTXP PO (08:15)
[2017-03-17] MEDS ORDERED: LPR25 PO (08:15)
--- NOTE | 2017-03-17 08:30 | Discharge Instructions ---
Discharge Instructions Date of Service Mar 17, 2017. Admission Reason for Admission: UTI Discharge Discharge Diagnosis / Problem: UTI, new onset paroxysmal atrial fibrilation Discharge Goals Goal(s): Improve function Activity Recommendations Activity Limitations: resume your previous activity Lifting Limitations: none Exercise/Sports Limitations: as tolerated May Resume Sexual Activity: when tolerated Shower/Bathe: no limitations . Instructions / Follow-Up Instructions / Follow-Up see your PCP and your mortgage loan computation clerk within a week needs lipid panel as an out patient Metformin dose was decreased to 500mg bid as Hgb A1C is 5.6 Current Hospital Diet Patient's current hospital diet: Diabetes Type 2 Diet Discharge Diet Recommended Diet: Diabetes Type 2 Diet Pending Studies Studies pending at discharge: no Laboratory Results Hemoglobin A1c Test 03/16/17 07:49 Range/Units Estimated Average Glucose 114 mg/dl Hemoglobin A1c 5.6 4.5-5.6 % Medical Emergencies . Who to Call and When: Medical Emergencies: If at any time you feel your situation is an emergency, please call 911 immediately. . Non-Emergent Contact Non-Emergency issues call your: [employer] Call Non-Emergent contact if: you have a fever, temperature is above 100.5, your pain is unusual for you, your pain is concerning you, you have any medication questions . . "Provider Documentation" section prepared by Javier Ratliff. . VTE Core Measure Inpt VTE Proph given/why not?: Enoxaparin (Lovenox)SQ
[2017-03-17] MEDS ORDERED: METF500T PO (08:32)
[2017-03-17] MEDS: ENOXAPARIN 60 MG/0.6 ML SYR SQ SCH (10:28)
[2017-03-17 10:33] VITALS: BP 138/84; PULSE 66; TEMP 36.5; O2SAT 95
--- NOTE | 2017-03-17 18:33 | Discharge Summary ---
Discharge Summary Date of Service Mar 17, 2017. Discharge Summary Admission Date: Mar 15, 2017 at 17:48 Discharge Date: Mar 17, 2017 Discharge Disposition: Home Principal Diagnosis: UTI Problems/Secondary Diagnoses: HTN tachycardia Medication Reconciliation New Medications: Cefdinir (Omnicef) 300 Mg Cap 1 CAP PO BID for 5 Days, #10 CAP start tomorrow 03/18/2017 Metformin Hcl (Glucophage) 500 Mg Tab 1 TAB PO BID for 30 Days, #60 TAB 5 Refills Rivaroxaban (Xarelto) 20 Mg Tab 1 TAB PO DAILY for 30 Days, #30 TAB 11 Refills take it with dinner Lactobacillus Acidophilus (Lactinex Granules) 1 Gm Pack 1 GM PO TIDM for 10 Days, #30 PKT can use any over the counter brand for 10 days Metoprolol Tartrate (Lopressor) 25 Mg Tab 25 MG PO BID for 30 Days, #60 TAB Continued Medications: Levothyroxine Sodium (Synthroid) 75 Mcg Tab 75 MCG PO DAILY, TAB Tolterodine Tartrate (Detrol La) 4 Mg Cap 4 MG PO DAILY, CAP Discontinued Medications: Metformin HCl (Metformin HCl ER) 1,000 Mg Tab 1000 MG PO BID Discharge Exam Review of Systems: Constitutional: No fever, No chills, No sweats, No weight loss, No weakness , No fatigue, No problem reported Eyes: No worsening of vision, No eye pain, No redness, No discharge, No diplopia, No problem reported ENT: No hearing loss, No unusual epistaxis, No nasal symptoms, No sore throat, No tinnitus, No dental problems, No trouble swallowing, No problem reported Respiratory: No cough, No sputum, No wheezing, No shortness of breath, No dyspnea on exertion, No dyspnea at rest, No hemoptysis, No problem reported Cardiovascular: No chest pain, No orthopnea, No PND, No edema, No claudication, No palpitations, No problem reported Abdomen: No pain, No nausea, No vomiting, No diarrhea, No constipation, No GI bleeding, No problem reported Musculoskeletal: No joint pain, No muscle pain, No swelling, No calf pain, No problem reported Neurologic: No memory loss, No paralysis, No weakness, No numbness/tingling , No vertigo, No balance problems, No problem reported Psychiatric: No depression symptoms, No anhedonism, No anxiety, No insomnia , No substance abuse, No problem reported Endocrine: No fatigue, No excessive thirst, No excessive urination, No problem reported Hematologic / Lymphatic: No abnormal bleeding/bruising, No clotting problems , No swollen lymph nodes, No night sweats, No problem reported Integumentary: No rash, No itch, No new/changing skin lesions, No color change, No bleeding, No problem reported Hospital Course The patient is a 71-year-old female, P/W UTI symptoms, op urgent care UCx showed E coli sensitive to CTXN heart rate in the 120s and her temperature was 37.9. D dimer was elevated but CTA and US lower ext were negative. she was treated with CTXN then switched to cefdinir upon discharge. found to be in and out of A fib and started on xarelto ultrasound to ruled out perinephric abscess or hydronephrosis her hgbA1c was 5.6, metformin initially held due to contrast exposure then decreased to 500mg bid stable for DC and will finish 5 days of cefdinir as an out patient Total Time Spent: Greater than 30 minutes This includes examination of the patient, discharge planning, medication reconciliation, and communication with other providers. Discharge Instructions Please refer to the electronic Patient Visit Report (Discharge Instructions) for additional information.
--- NOTE | 2017-03-20 12:45 | EDITING REQUIRED CODING QUERY ---
Dear Dr. Reynolds, To promote full compliance with coding requirements relating to patient care, physician participation is requested in all cases of [employer] uncertainty. Please assist us with the question(s) below: In responding to this query, please exercise your independent professional judgement. The fact that a question is asked does not imply that any particular answer is desired or expected. We appreciate your clarification on this issue. Sepsis is documented on the H and P and Progress Note but not on the Discharge Summary. Does the patient have? ( )Bacteremia (Nonspecific laboratory finding of bacteria in the blood) Specify Organism ( ) Present on Admission () Not present on admission () Unable to clinically determine ( ) Septicemia (Systemic disease associated with the presence of pathogenic microorganisms in the blood): Specify Organism ( ) Present on Admission () Not present on admission () Unable to clinically determine (x ) Sepsis Specify Organism E coli Specify Associated Condition/Diagnosis ( x) Present on Admission ( ) Not present on admission ( ) Unable to clinically determine Please note that I did not write the discharge summary, I only wrote a progress note on 03/16 ( ) Severe Sepsis (Sepsis associated with acute organ dysfunction) Specify Organism Specify Associated Condition/Diagnosis () Present on Admission () Not present on admission () Unable to clinically determine ( ) Septic Shock (Severe sepsis with acute circulatory failure, unexplained by other causes) () Present on Admission () Not present on admission () Unable to clinically determine ( ) Other, patient has: ( ) Sepsis was Ruled Out Thank you for your time. Rukhsana Wright, [facility] Medical documentation from H and P and Progress Note. Progress Note - Sepsis due to UTI: fevers at home, WBC of 12k, tachycardia prior urine cultures grew E coli in [place], called urgent care, no results yet from most recent culture that they took urine culture here with no growth since she was already on antibiotics continue NSS at 100cc/hr, blood cultures pending continue Rocephin of note, she has issues with oral antibiotics, vomiting with Ceftin and Macrobid would recommend transitioning to oral antibiotics while still in hospital to make sure she tolerates H and P ASSESSMENT: 1. Sepsis, present on admission secondary to below. 2. Urinary tract infection, present on admission. 3. Elevated D-dimer with a recent history of travel. 4. Diabetes mellitus. 5. Hypertension 6. Hypothyroidism. 7. Persistent tachycardia.
== END 2017-03-17 12:10 | disposition home or self-care (01) | DRG 872 ==
LOC: C.EDB 12:02 → C.MED 17:48 → ENRESERV 18:07
PROVIDERS: ADMIT Internal Medicine; ATTEND Internal Medicine
DX: A41.9 Sepsis, unspecified organism (principal); N39.0 Urinary tract infection, site not specified; I48.0 Paroxysmal atrial fibrillation; B96.20 Unspecified Escherichia coli [E. coli] as the cause of diseases classified elsewhere; I10 Essential (primary) hypertension; R00.0 Tachycardia, unspecified; R79.1 Abnormal coagulation profile; R55 Syncope and collapse; E11.9 Type 2 diabetes mellitus without complications; I36.1 Nonrheumatic tricuspid (valve) insufficiency; E03.9 Hypothyroidism, unspecified; Z79.899 Other long term (current) drug therapy; Z79.84 Long term (current) use of oral hypoglycemic drugs; Z87.448 Personal history of other diseases of urinary system